=== PATIENT | female | born 1985 | race Caucasian/White ===

== ENCOUNTER 2021-08-28 18:49 | Emergency (ER) | payer SELFPAY ==
[2021-08-28 19:21] VITALS: BP 125/85; PULSE 117; RESP 16; TEMP 38.7; O2SAT 99
--- NOTE | 2021-08-28 20:59 | ED.URI ---
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 She was Covid tested today at her job due to symptoms and was ngative,she is routinely tested weekly due to type of environment she is working. Patient states states that her throat is painful feels like shards of glass in throat. Patient denies any cough or any nasal discharge or any ear pain or body aches. MD elicited complaint: fever and sore throat Related Data Allergies Allergy/AdvReac Type Severity Reaction Status Date / Time No Known Allergies Allergy Verified 08/28/21 20:00 Review of Systems Review of Systems: CONSTITUTIONAL:Positive for fever, chills, or sweats. EYES: Denies visual changes, redness, or discharge. ENT: Denies rhinorrhea, congestion,positive for sore throat, no otalgia. CARDIOVASCULAR: Denies chest pain, palpitations, or edema. RESPIRATORY: Denies cough or dyspnea. GASTROINTESTINAL: Denies abdominal pain, nausea, vomiting, or diarrhea. GENITOURINARY: Denies dysuria or hematuria. SKIN: Denies rash or itching. MUSCULOSKELETAL: Denies back pain, joint pain, or myalgia. NEUROLOGIC: Denies headache, numbness, or weakness. PSYCHIATRIC: Denies anxiety or depression. All systems reviewed & are unremarkable except as noted in HPI and below PMFSH Comments At time of signature, agree with nursing past medical, surgical, social and family history. There is no relevant family history pertinent to the presenting complaint Exam Narrative: GENERAL: Well-appearing, well-nourished, and in no acute distress. HEAD: Normocephalic, atraumatic. EYES: PERRLA and EOMI. ENT: Nares clear, no rhinorrhea or epistaxis. Mucous membranes moist.TM normal with good light reflex, throat is red with left tonsil huge with exudate noted NECK: Supple.some left sided lymph swelling CHEST: Clear to auscultation. No respiratory distress.SAO2 99% on room air no tachypnea or any shortness of breath noted. HEART: Regular rate and rhythm. No murmur heard. Normal peripheral pulses. ABDOMEN: Soft, nontender, nondistended, normal active bowel sounds. EXTREMITIES: Normal range of motion. No edema. SKIN: Warm, dry, no rash. NEURO: No focal deficits. Alert and oriented x3. Course Course Level of Care: Express Care Visit Vital Signs Vital signs: Vital Signs Temperature 38.7 C H 08/28/21 19:21 Pulse Rate 117 H 08/28/21 19:21 Respiratory Rate 16 08/28/21 19:21 Blood Pressure 125/85 08/28/21 19:21 Pulse Oximetry 99 08/28/21 19:21 Temperature 38.7 C H 08/28/21 19:21 Pulse Rate 117 H 08/28/21 19:21 Respiratory Rate 16 08/28/21 19:21 Blood Pressure 125/85 08/28/21 19:21 Pulse Oximetry 99 08/28/21 19:21 MDM - URI/Sore Throat Differential Diagnosis Differential diagnosis: Likely upper respiratory infection, sinusitis, pharyngitis and other (Tonsillitis) Medical Records Attestation: I reviewed the patient's medical records. Lab Data Attestation: I reviewed the patient's lab results. Lab results narrative: Strep screen negative Labs: Strep Screen Presumptive Negative *(Reference Range: Negative)* Critical Care Time Critical Care Time Critical Care Time: No Discharge Plan Discharge Clinical Impression: Acute tonsillitis Qualifiers: Pharyngitis/tonsillitis etiology: unspecified etiology Qualified Code(s): J03.90 - Acute tonsillitis, unspecified Patient Disposition: Home, Self-Care Condition: Stable Instructions: Antibiotic Form, Tonsillitis (ED) Additional Instructions:
== END 2021-08-28 21:05 | disposition home or self-care (01) ==
PROVIDERS: Emergency Provider Registered Nurse
DX: J03.90 Acute tonsillitis, unspecified (principal)
CPT/HCPCS: 87081; 87880; 99203; G0463